=== PATIENT | female | born 1970 | race African-American/Black ===

== ENCOUNTER 2018-09-03 11:04 | Emergency (ER) | payer MEDICAID ==
[~2018-09-03] VITALS: Ht 170.2 cm; Wt 98.9 kg
[2018-09-03 12:27] LABS: Basophils # (auto) 0.1 uL; Basophils % (auto) 0.7 % (0.0-2.0); Eosinophils # (auto) 0.1 uL; Eosinophils % (auto) 1.4 % (0.0-7.0); Hematocrit 48.7 % (36.0-46.0); Hemoglobin 16.1 g/dL (12.2-16.2); Lymphocytes # (auto) 2.5 uL; Lymphocytes % (auto) 30.4 % (10.0-50.0); Mean Corpuscular Hemoglobin 29.8 pg (28.0-32.0); Mean Corpuscular Hgb Conc. 33.1 g/dL (32.0-36.0); Mean Corpuscular Volume 90.2 fL (80.0-100.0); Monocytes # (auto) 0.5 uL; Monocytes % (auto) 6.3 % (0.0-12.0); Neutrophils # (auto) 5.1 uL; Neutrophils % (auto) 61.2 % (37.0-80.0); Nucleated Red Blood Cells % 0.2 %; Platelet Count (auto) 242 10^3/uL (140-450); Red Cell Distribution Width 14.3 % (11.8-14.3); White Blood Cell 8.4 10^3/uL (4.4-10.8)
[2018-09-03 12:57] LABS: Alanine Aminotransferase 16 U/L (13-56); Albumin 3.7 g/dL (3.4-5.0); Anion Gap 10 (5-15); Aspartate Aminotransferase 15 U/L (15-37); BUN/Creatinine Ratio 6.9; Blood Urea Nitrogen 10 mg/dL (7-18); Calcium 9.7 mg/dL (8.5-10.1); Carbon Dioxide 26 mmol/L (21-32); Chloride 105 mmol/L (98-107); GFR African American 50 mL/min; GFR Non-African American 41 mL/min; Glucose 94 mg/dL (74-106); Potassium 3.8 mmol/L (3.5-5.1); Sodium 141 mmol/L (136-145)
[2018-09-03 13:02] LABS: Alkaline Phosphatase 140 U/L (45-117); Bilirubin, Total 0.4 mg/dL (0.2-1.0); Total Protein 8.3 g/dL (6.4-8.2)
[2018-09-03] MEDS ORDERED: amLODIPine BESYLATE 5 MG TAB PO ONE (16:00)
[2018-09-03] MEDS ORDERED: cloNIDine HCL 0.1 MG TAB PO ONE (16:00)
[2018-09-03 17:38] LABS: Urine Bacteria FEW /hpf (None Seen); Urine Blood TRACE /uL (Negative); Urine Hyaline Cast FEW /lpf (0 - 2); Urine Mucus FEW (None Seen); Urine WBC 6 /hpf (0 - 5)
[2018-09-03 19:21] VITALS: BP 158/87
== END 2018-09-03 19:29 | disposition home or self-care (01) ==
LOC: ER 11:04
DX: I10 Essential (primary) hypertension (principal); R11.2 Nausea with vomiting, unspecified; R07.9 Chest pain, unspecified; Z88.5 Allergy status to narcotic agent
CPT/HCPCS: 36415; 70450; 71046; 80053; 81001; 82962; 84484; 85025

== ENCOUNTER → 2019-02-26 | Outpatient (CLI) | payer MEDICAID | END | disposition home or self-care (01) | LOC: Rad HDHVI 08:07 | PROVIDERS: ATTEND Internal Medicine Cardiovascular Disease | DX: I35.1 Nonrheumatic aortic (valve) insufficiency (principal) | CPT/HCPCS: 93306 ==

== ENCOUNTER → 2019-03-24 | Outpatient (CLI) | payer MEDICAID ==
[~2019-03-24] VITALS: Ht 170.2 cm; Wt 97.1 kg
[~2019-03-24] MED LIST: D5W 5% IV SCH; DIPYRIDAMOLE (5MG/ML) 10 ML VIAL IV ONE; DIPYRIDAMOLE IV SCH
== END | disposition home or self-care (01) ==
LOC: Rad HDHVI 08:08
PROVIDERS: ATTEND Internal Medicine Cardiovascular Disease
DX: R07.9 Chest pain, unspecified (principal); R42 Dizziness and giddiness
CPT/HCPCS: 78452; 93005; 96374; 96375; A9500; J1245

== ENCOUNTER → 2019-04-27 | Outpatient (CLI) | payer MEDICAID ==
[~2019-04-27] MED LIST changes: +AMLO5TAB15 PO; +ASPI-404 PO; +CLON0.1T PO; -D5W 5% IV SCH; -DIPYRIDAMOLE (5MG/ML) 10 ML VIAL IV ONE; -DIPYRIDAMOLE IV SCH; +LISI40TA PO; +LORA0.5T12 PO; +METO-169 PO; +METO10TA3 PO; +NITR0.4S29 SL; +QUET100T46 PO
[2019-04-27 10:25] VITALS: BP 103/65
--- NOTE | 2019-04-27 10:25 | NUR ---
PT. TO CLINIC FOR PRE OP DIAGNOSTICS FOR LEFT HEART CATH ON 04/29 AT [facility]. PT. EDUCATION DONE ON DZ PROCESS. EKG ORDERED.
[2019-04-27 10:45] VITALS: BP 105/68
--- NOTE | 2019-04-27 10:45 | NUR ---
Pre-Op Discharge Summary: See e-MAR for any medications given for this visit. Pre-op orders received and carried out per MD of EKG, LABS and chest xrays. Patient given a copy of EKG with instructions to go to [facility] out patient for further follow up care.
[2019-04-27 12:26] LABS: Basophils # (auto) 0.1 uL; Basophils % (auto) 1.1 % (0.0-2.0); Eosinophils # (auto) 0.1 uL; Eosinophils % (auto) 1.4 % (0.0-7.0); Hematocrit 44.6 % (36.0-46.0); Hemoglobin 15.1 g/dL (12.2-16.2); Lymphocytes # (auto) 4.5 uL; Lymphocytes % (auto) 41.5 % (10.0-50.0); Mean Corpuscular Hemoglobin 30.9 pg (28.0-32.0); Mean Corpuscular Volume 91.1 fL (80.0-100.0); Monocytes # (auto) 0.7 uL; Monocytes % (auto) 6.8 % (0.0-12.0); Neutrophils # (auto) 5.3 uL; Neutrophils % (auto) 49.2 % (37.0-80.0); Nucleated Red Blood Cells % 0.2 %; Platelet Count (auto) 269 10^3/uL (140-450); Red Blood Cells 4.89 10^6/uL (4.0-5.20); Red Cell Distribution Width 13.7 % (11.8-14.3); White Blood Cell 10.7 10^3/uL (4.4-10.8)
[2019-04-27 12:38] LABS: INR 0.94 (0.9-1.15); Partial Thromboplastin Time 27.8 sec (23.64-32.05)
[2019-04-27 12:42] LABS: BUN/Creatinine Ratio 9.2; Calcium 9.3 mg/dL (8.5-10.1); Potassium 4.1 mmol/L (3.5-5.1)
== END | disposition home or self-care (01) ==
LOC: Rad HDHVI 09:45
PROVIDERS: ATTEND Internal Medicine Cardiovascular Disease
DX: Z01.812 Encounter for preprocedural laboratory examination (principal); I25.10 Atherosclerotic heart disease of native coronary artery without angina pectoris; R94.31 Abnormal electrocardiogram [ECG] [EKG]
CPT/HCPCS: 36415; 71046; 80048; 84702; 85025; 85610; 85730; 93005; G0463

== ENCOUNTER 2019-04-29 08:08 | Day surgery (SDC) | payer MEDICAID ==
[~2019-04-29] VITALS: Ht 170.2 cm; Wt 100.7 kg
[2019-04-29] MEDS ORDERED: IOHEXOL 350 MG/ML 100ML IJ ONE (10:41)
[2019-04-29] MEDS ORDERED: LIDOCAINE 2%HCL (LOCAL ANESTH.) INJ 20ML MDV ONE (10:41)
[2019-04-29] MEDS ORDERED: ANGIOMAX 250 MG VIAL IV ONE (10:45)
[2019-04-29] MEDS ORDERED: fentaNYL CITRATE 100 MCG/2 ML VL ONE (10:45)
[2019-04-29] MEDS ORDERED: MIDAZOLAM HCL 1MG/1ML-2 ML VIAL ONE (10:45)
[2019-04-29] MEDS ORDERED: SODIUM CHL 0.9% 0 ML ONE (10:45)
[2019-04-29] MEDS ORDERED: ACETAMINOPHEN 500 MG TAB PO PRN (13:00)
[2019-04-29] MEDS ORDERED: ONDANSETRON HCL 4 MG/2 ML VIAL IV PRN (13:00)
== END 2019-04-29 15:00 | disposition home or self-care (01) ==
LOC: CATH 08:08
PROVIDERS: ATTEND Internal Medicine Cardiovascular Disease
DX: R06.02 Shortness of breath (principal); R07.89 Other chest pain; R94.39 Abnormal result of other cardiovascular function study; I10 Essential (primary) hypertension; Z87.891 Personal history of nicotine dependence; Z79.899 Other long term (current) drug therapy; Z79.82 Long term (current) use of aspirin; Z88.5 Allergy status to narcotic agent; E66.01 Morbid (severe) obesity due to excess calories; Z88.8 Allergy status to other drugs, medicaments and biological substances; Z68.34 Body mass index [BMI] 34.0-34.9, adult
CPT/HCPCS: 93458; C1760; C1894; J1644; J2250; J3010; J7030; Q9967; 99152

== ENCOUNTER → 2020-03-02 | Outpatient (CLI) | payer MEDICAID ==
[~2020-03-02] MED LIST changes: -ASPI-404 PO; +ASPI-543 PO; -LISI40TA PO; +LISI40TA11 PO; -LORA0.5T12 PO; +LORA0.5T20 PO
== END | disposition home or self-care (01) ==
LOC: Rad HDHVI 14:41
PROVIDERS: ATTEND Internal Medicine Cardiovascular Disease
DX: I50.42 Chronic combined systolic (congestive) and diastolic (congestive) heart failure (principal); I42.0 Dilated cardiomyopathy; R00.2 Palpitations
CPT/HCPCS: 93306

== ENCOUNTER → 2020-08-21 | Outpatient (CLI) | payer MEDICAID ==
[~2020-08-21] VITALS: Ht 170.2 cm; Wt 99.8 kg
[~2020-08-21] MED LIST changes: +AMLO-489 PO; -AMLO5TAB15 PO; +DYA375C PO; +PANC3600 OR
[2020-08-21 09:15] VITALS: BP 124/84
[2020-08-21 10:00] VITALS: BP 113/72
[2020-08-21 11:27] LABS: Basophils # (auto) 0 10 ^3/uL (0-0.2); Basophils % (auto) 0.6 % (0.0-2.0); Eosinophils # (auto) 0.2 10 ^3/uL (0-0.8); Eosinophils % (auto) 2.1 % (0.0-7.0); Hematocrit 41.1 % (36.0-46.0); Hemoglobin 13.7 g/dL (12.2-16.2); Lymphocytes # (auto) 3.9 10 ^3/uL (0.4-5.4); Lymphocytes % (auto) 43.9 % (10.0-50.0); Mean Corpuscular Hemoglobin 28.2 pg (28.0-32.0); Mean Corpuscular Hgb Conc. 33.2 g/dL (32.0-36.0); Monocytes # (auto) 0.6 10 ^3/uL (0-1.3); Monocytes % (auto) 6.7 % (0.0-12.0); Neutrophils # (auto) 4.2 10 ^3/uL (1.6-8.6); Neutrophils % (auto) 46.7 % (37.0-80.0); Nucleated Red Blood Cells % 0.1 %; Platelet Count (auto) 265 10^3/uL (140-450); Red Blood Cells 4.83 10^6/uL (4.0-5.20); Red Cell Distribution Width 14.9 % (11.8-14.3); White Blood Cell 8.9 10^3/uL (4.4-10.8)
[2020-08-21 11:41] LABS: BUN/Creatinine Ratio 10.1; Calcium 9.1 mg/dL (8.5-10.1); Potassium 4.5 mmol/L (3.5-5.1)
[2020-08-21 11:47] LABS: INR 1.03 (0.9-1.15); Partial Thromboplastin Time 27.9 sec (23.0-31.2)
== END | disposition home or self-care (01) ==
LOC: Rad HDHVI 09:10
PROVIDERS: ATTEND Internal Medicine Cardiovascular Disease
DX: Z01.812 Encounter for preprocedural laboratory examination (principal); Z20.822 Contact with and (suspected) exposure to COVID-19
CPT/HCPCS: 36415; 80048; 85025; 85610; 85730; 93005; G0463; U0003

== ENCOUNTER 2020-08-24 06:58 | Day surgery (SDC) | payer MEDICAID ==
[~2020-08-24] VITALS: Ht 170.2 cm; Wt 99.8 kg
[~2020-08-24 06:58] MED LIST changes: -DYA375C PO; -METO-169 PO; +METO-289 PO; -QUET100T46 PO; +QUET100T47 PO; +TRIA37.56 PO
[2020-08-24] MEDS ORDERED: VANCOMYCIN 1GM/250ML 250 ML IV ONE ×2 (08:45→09:00)
[2020-08-24] MEDS ORDERED: LIDOCAINE 2%HCL (LOCAL ANESTH.) INJ 20ML MDV ONE (09:53)
[2020-08-24] MEDS ORDERED: VANCOMYCIN HCL 1000 MG VL ONE (10:32)
[2020-08-24] MEDS ORDERED: MIDAZOLAM HCL 2MG/2ML 2ml VIAL (1mg/ml) ONE (10:32)
[2020-08-24] MEDS ORDERED: fentaNYL CITRATE 100 MCG/2 ML VL ONE (10:32)
[2020-08-24] MEDS ORDERED: HYDROcodone-ACET 10/325MG TAB PO ONE (11:45)
== END 2020-08-24 13:53 | disposition home or self-care (01) ==
LOC: CATH 06:58
PROVIDERS: ATTEND Internal Medicine Cardiovascular Disease
DX: Z45.018 Encounter for adjustment and management of other part of cardiac pacemaker (principal); E66.01 Morbid (severe) obesity due to excess calories; Z98.890 Other specified postprocedural states; Z68.34 Body mass index [BMI] 34.0-34.9, adult; Z79.899 Other long term (current) drug therapy; Z88.5 Allergy status to narcotic agent
CPT/HCPCS: 33208; 71045; 93005; C1785; C1892; C1898; J2250; J3010; J3370; J7030; 99152; 99153

== ENCOUNTER → 2020-08-25 | Outpatient (CLI) | payer MEDICAID ==
[~2020-08-25] MED LIST changes: +DYA375C PO; +METO-169 PO; -METO-289 PO; +QUET100T46 PO; -QUET100T47 PO; -TRIA37.56 PO
== END | disposition home or self-care (01) ==
LOC: Rad HDHVI 14:01
PROVIDERS: ATTEND Internal Medicine Cardiovascular Disease
DX: Z95.0 Presence of cardiac pacemaker (principal)
CPT/HCPCS: 71046

== ENCOUNTER → 2023-03-05 | Day surgery (SDC) | payer MEDICAID ==
[2023-02-28 09:48] LABS: Basophils # (auto) 0.1 10 ^3/uL (0-0.2); Basophils % (auto) 0.7 % (0.0-2.0); Eosinophils # (auto) 0.1 10 ^3/uL (0-0.8); Eosinophils % (auto) 1.3 % (0.0-7.0); Hemoglobin 14.6 g/dL (12.2-16.2); Lymphocytes # (auto) 3.5 10 ^3/uL (0.4-5.4); Lymphocytes % (auto) 38.2 % (10.0-50.0); Mean Corpuscular Hemoglobin 28.5 pg (28.0-32.0); Mean Corpuscular Hgb Conc. 32.5 g/dL (32.0-36.0); Mean Corpuscular Volume 87.5 fL (80.0-100.0); Monocytes # (auto) 0.9 10 ^3/uL (0-1.3); Monocytes % (auto) 9.6 % (0.0-12.0); Neutrophils # (auto) 4.6 10 ^3/uL (1.6-8.6); Neutrophils % (auto) 50.2 % (37.0-80.0); Nucleated Red Blood Cells % 0.1 %; Red Blood Cells 5.14 10^6/uL (4.0-5.20); Red Cell Distribution Width 13.9 % (11.8-14.3); White Blood Cell 9.1 10^3/uL (4.4-10.8)
[2023-02-28 10:00] LABS: INR 1.04 (0.9-1.15); Partial Thromboplastin Time 29.2 SEC (24.5-34.5); Prothrombin Time 10.9 sec (9.3-11.8)
[2023-02-28 10:11] LABS: Albumin 3.5 g/dL (3.4-5.0); Calcium 9.1 mg/dL (8.5-10.1); Potassium 4.6 mmol/L (3.5-5.1)
[2023-02-28 10:13] LABS: BUN/Creatinine Ratio 7.9 (10.0-20.0); Bilirubin, Total 0.3 mg/dL (0.2-1.0); Total Protein 7.9 g/dL (6.4-8.2)
[~2023-03-05] VITALS: Ht 170.2 cm; Wt 101.2 kg
[~2023-03-05] MED LIST changes: -AMLO-489 PO; +DAPA1TAB4 PO; -DYA375C PO; +DexAMETHasone SOD PHOS 10MG/1ML VIAL INJ ONE; +HYDROmorphone HCL 2 MG/ML VL/or syr IV PRN; +LABETALOL HCL 5 MG/ML 4ML SYRINGE IV PRN; -LISI40TA11 PO; -LORA0.5T20 PO; +MEPERIDINE HCL (25 MG/ML) 1ML VIAL ONE; -METO-169 PO; +METO-289 PO; -METO10TA3 PO; +MIDAZOLAM HCL 2MG/2ML 2ml VIAL (1mg/ml) IV PRN; +MIDAZOLAM HCL 2MG/2ML 2ml VIAL (1mg/ml) ONE; +ONDANSETRON HCL 4 MG/2 ML VIAL IV PRN; +PROM25TA10 OR; +PROPOFOL 10 MG/ML 20 ML IV ONE; -QUET100T46 PO; +QUET100T47 PO; +SACU1TAB7 PO; +TRIA37.587 PO; +ePHEDrine SULFATE 50 MG/ML AMP IV PRN; +fentaNYL CITRATE 100 MCG/2 ML VL ONE
[2023-03-05 16:21] VITALS: TEMP 98.2; O2SAT 100
[2023-03-05 16:51] VITALS: BP 111/55; PULSE 75; RESP 15; O2SAT 97
== END | disposition home or self-care (01) ==
LOC: GI 11:59
PROVIDERS: ATTEND Internal Medicine Gastroenterology
DX: R19.4 Change in bowel habit (principal); K64.0 First degree hemorrhoids; Q43.8 Other specified congenital malformations of intestine; K63.5 Polyp of colon
CPT/HCPCS: 36415; 45385; 80053; 81025; 85025; 85610; 85730; J1100; J2175; J2250; J2704; J3010; J7030

== ENCOUNTER → 2024-02-04 | Outpatient (CLI) | payer MEDICAID ==
[~2024-02-04] MED LIST changes: -DexAMETHasone SOD PHOS 10MG/1ML VIAL INJ ONE; -HYDROmorphone HCL 2 MG/ML VL/or syr IV PRN; -LABETALOL HCL 5 MG/ML 4ML SYRINGE IV PRN; -MEPERIDINE HCL (25 MG/ML) 1ML VIAL ONE; -MIDAZOLAM HCL 2MG/2ML 2ml VIAL (1mg/ml) IV PRN; -MIDAZOLAM HCL 2MG/2ML 2ml VIAL (1mg/ml) ONE; -ONDANSETRON HCL 4 MG/2 ML VIAL IV PRN; -PROPOFOL 10 MG/ML 20 ML IV ONE; -ePHEDrine SULFATE 50 MG/ML AMP IV PRN; -fentaNYL CITRATE 100 MCG/2 ML VL ONE
[2024-02-04 07:09] LABS: Basophils # (auto) 0.1 10 ^3/uL (0-0.2); Eosinophils # (auto) 0.1 10 ^3/uL (0-0.8); Eosinophils % (auto) 1.8 % (0.0-7.0); Hematocrit 43.3 % (36.0-46.0); Hemoglobin 14.7 g/dL (12.2-16.2); Lymphocytes # (auto) 3.3 10 ^3/uL (0.4-5.4); Lymphocytes % (auto) 40.6 % (10.0-50.0); Mean Corpuscular Hemoglobin 29.7 pg (28.0-32.0); Mean Corpuscular Volume 87.4 fL (80.0-100.0); Monocytes # (auto) 0.6 10 ^3/uL (0-1.3); Monocytes % (auto) 7.4 % (0.0-12.0); Neutrophils % (auto) 49.2 % (37.0-80.0); Nucleated Red Blood Cells % 0.1 %; Red Blood Cells 4.96 10^6/uL (4.0-5.20); Red Cell Distribution Width 13.7 % (11.8-14.3); White Blood Cell 8.2 10^3/uL (4.4-10.8)
[2024-02-04 08:10] LABS: Alanine Aminotransferase 13 U/L (7-40); Albumin 4.3 g/dL (3.2-4.8); Alkaline Phosphatase 112 U/L (46-116); Anion Gap 6 (5-15); Aspartate Aminotransferase 9 U/L (13-40); BUN/Creatinine Ratio 9.7 (10.0-20.0); Blood Urea Nitrogen 12 mg/dL (9-23); Calcium 9.6 mg/dL (8.7-10.4); Carbon Dioxide 27 mmol/L (20-30); Chloride 107 mmol/L (98-107); Cholesterol 142 mg/dL (< 200); Glucose 101 mg/dL (74-106); HDL Cholesterol 37 mg/dL (40-59); LDL Cholesterol 96 mg/dL (< 100); Potassium 4.7 mmol/L (3.5-5.1); Sodium 140 mmol/L (136-145); Triglycerides 127 mg/dL (< 150)
[2024-02-04 08:11] LABS: Bilirubin, Total 0.4 mg/dL (0.2-1.0)
[2024-02-04 08:54] LABS: Free T3 3.18 pg/mL (2.3-4.2)
[2024-02-04 08:55] LABS: Free T4 (Free Thyroxine) 0.86 ng/dL (0.89-1.76)
== END | disposition home or self-care (01) ==
LOC: LAB 06:39
PROVIDERS: ATTEND Student in an Organized Health Care Education/Training Program
DX: I10 Essential (primary) hypertension (principal); R06.02 Shortness of breath; I42.8 Other cardiomyopathies
CPT/HCPCS: 36415; 80053; 80061; 84439; 84443; 84481; 85025

== ENCOUNTER → 2024-04-30 | Day surgery (SDC) | payer MEDICAID ==
[2024-04-28 07:16] LABS: INR 1.04 (0.9-1.15); Partial Thromboplastin Time 27.6 SEC (24.5-34.5)
[2024-04-28 07:21] LABS: Basophils # (auto) 0.1 10 ^3/uL (0-0.2); Basophils % (auto) 1.3 % (0.0-2.0); Eosinophils # (auto) 0.1 10 ^3/uL (0-0.8); Eosinophils % (auto) 1.6 % (0.0-7.0); Hematocrit 44.5 % (36.0-46.0); Hemoglobin 15.2 g/dL (12.2-16.2); Lymphocytes # (auto) 3.5 10 ^3/uL (0.4-5.4); Lymphocytes % (auto) 37.2 % (10.0-50.0); Mean Corpuscular Hemoglobin 30.3 pg (28.0-32.0); Mean Corpuscular Hgb Conc. 34.2 g/dL (32.0-36.0); Mean Corpuscular Volume 88.7 fL (80.0-100.0); Monocytes # (auto) 0.7 10 ^3/uL (0-1.3); Monocytes % (auto) 7.6 % (0.0-12.0); Neutrophils # (auto) 4.9 10 ^3/uL (1.6-8.6); Neutrophils % (auto) 52.3 % (37.0-80.0); Platelet Count (auto) 234 10^3/uL (140-450); Red Blood Cells 5.02 10^6/uL (4.0-5.20); White Blood Cell 9.4 10^3/uL (4.4-10.8)
[2024-04-28 07:39] LABS: Alanine Aminotransferase 12 U/L (7-40); Albumin 4.2 g/dL (3.2-4.8); Alkaline Phosphatase 110 U/L (46-116); Anion Gap 5 (5-15); Aspartate Aminotransferase 10 U/L (13-40); BUN/Creatinine Ratio 11.5 (10.0-20.0); Blood Urea Nitrogen 15 mg/dL (9-23); Calcium 10.3 mg/dL (8.7-10.4); Carbon Dioxide 28 mmol/L (20-31); Chloride 108 mmol/L (98-107); Glucose 109 mg/dL (74-106); Potassium 5.4 mmol/L (3.5-5.1); Sodium 141 mmol/L (136-145)
[2024-04-28 07:40] LABS: Bilirubin, Total 0.3 mg/dL (0.2-1.0); Total Protein 7.2 g/dL (5.7-8.2)
[~2024-04-30] VITALS: Ht 170.2 cm; Wt 99.8 kg
[~2024-04-30] MED LIST changes: +HYDROmorphone HCL 2 MG/ML VL/or syr IV PRN; +MEPERIDINE HCL (25 MG/ML) 1ML VIAL IV PRN; +METOCLOPRAMIDE HCL 5MG/ml INJ 2ml VIAL IV ONE; +ONDANSETRON HCL 4 MG/2 ML VIAL IV ONE; -PROM25TA10 OR; +PROPOFOL 10 MG/ML 20 ML IV ONE; +SPIR25TA PO; -TRIA37.587 PO; +fentaNYL CITRATE 100 MCG/2 ML VL ONE
[2024-04-30 10:01] VITALS: PULSE 60; RESP 18; O2SAT 96
[2024-04-30 12:23] VITALS: TEMP 98.5
[2024-04-30 12:45] VITALS: BP 108/58; PULSE 60; RESP 15; O2SAT 98
== END | disposition home or self-care (01) ==
LOC: GI 08:45
PROVIDERS: ATTEND Internal Medicine Gastroenterology
DX: K29.50 Unspecified chronic gastritis without bleeding (principal); R10.13 Epigastric pain; K21.00 Gastro-esophageal reflux disease with esophagitis, without bleeding; K44.9 Diaphragmatic hernia without obstruction or gangrene; K25.9 Gastric ulcer, unspecified as acute or chronic, without hemorrhage or perforation; I11.0 Hypertensive heart disease with heart failure; I50.9 Heart failure, unspecified; F31.9 Bipolar disorder, unspecified; Z87.891 Personal history of nicotine dependence; Z95.0 Presence of cardiac pacemaker; Z79.899 Other long term (current) drug therapy; Z88.8 Allergy status to other drugs, medicaments and biological substances; Z90.710 Acquired absence of both cervix and uterus; Z98.890 Other specified postprocedural states
CPT/HCPCS: 36415; 43239; 80053; 85025; 85610; 85730; 88305; 88312; 88342; J2704; J3010; J7030

== ENCOUNTER → 2024-10-28 | Outpatient (CLI) | payer MEDICAID ==
[~2024-10-28] MED LIST changes: -HYDROmorphone HCL 2 MG/ML VL/or syr IV PRN; -MEPERIDINE HCL (25 MG/ML) 1ML VIAL IV PRN; -METOCLOPRAMIDE HCL 5MG/ml INJ 2ml VIAL IV ONE; -ONDANSETRON HCL 4 MG/2 ML VIAL IV ONE; -PROPOFOL 10 MG/ML 20 ML IV ONE; -fentaNYL CITRATE 100 MCG/2 ML VL ONE
[2024-10-28 09:27] LABS: Basophils # (auto) 0.1 10 ^3/uL (0-0.2); Basophils % (auto) 1.1 % (0.0-2.0); Eosinophils # (auto) 0.1 10 ^3/uL (0-0.8); Eosinophils % (auto) 1.5 % (0.0-7.0); Hematocrit 44.9 % (36.0-46.0); Hemoglobin 15.1 g/dL (12.2-16.2); Lymphocytes # (auto) 3.6 10 ^3/uL (0.4-5.4); Lymphocytes % (auto) 40.6 % (10.0-50.0); Mean Corpuscular Hgb Conc. 33.5 g/dL (32.0-36.0); Mean Corpuscular Volume 89.5 fL (80.0-100.0); Monocytes # (auto) 0.6 10 ^3/uL (0-1.3); Monocytes % (auto) 6.6 % (0.0-12.0); Neutrophils # (auto) 4.5 10 ^3/uL (1.6-8.6); Neutrophils % (auto) 50.2 % (37.0-80.0); Nucleated Red Blood Cells % 0.1 %; Platelet Count (auto) 235 10^3/uL (140-450); Red Blood Cells 5.02 10^6/uL (4.0-5.20); Red Cell Distribution Width 13.8 % (11.8-14.3); White Blood Cell 8.9 10^3/uL (4.4-10.8)
[2024-10-28 10:46] LABS: Free T3 3.39 pg/mL (2.3-4.2)
[2024-10-28 10:47] LABS: Free T4 (Free Thyroxine) 0.89 ng/dL (0.89-1.76)
[2024-10-28 10:48] LABS: Alanine Aminotransferase 13 U/L (7-40); Albumin 4.5 g/dL (3.2-4.8); Alkaline Phosphatase 96 U/L (46-116); Anion Gap 6 (5-15); Aspartate Aminotransferase 12 U/L (13-40); BUN/Creatinine Ratio 11.3 (10.0-20.0); Bilirubin, Total 0.4 mg/dL (0.2-1.0); Blood Urea Nitrogen 14 mg/dL (9-23); Calcium 10.3 mg/dL (8.7-10.4); Carbon Dioxide 27 mmol/L (20-31); Chloride 106 mmol/L (98-107); Glucose 94 mg/dL (74-106); Potassium 4.9 mmol/L (3.5-5.1); Sodium 139 mmol/L (136-145); Total Protein 7.5 g/dL (5.7-8.2)
[2024-10-28 16:49] LABS: LDL Cholesterol 90 mg/dL (< 100)
[2024-10-28 16:50] LABS: Cholesterol 147 mg/dL (< 200)
[2024-10-28 16:58] LABS: HDL Cholesterol 35 mg/dL (40-59); Triglycerides 179 mg/dL (< 150)
== END | disposition home or self-care (01) ==
LOC: LAB 08:52
PROVIDERS: ATTEND Internal Medicine
DX: I10 Essential (primary) hypertension (principal); I42.8 Other cardiomyopathies; E78.5 Hyperlipidemia, unspecified; R00.2 Palpitations
CPT/HCPCS: 36415; 80053; 80061; 84439; 84443; 84481; 85025